=== PATIENT | male | born 1950 | race Caucasian/White ===

== ENCOUNTER 2024-10-17 18:49 | Inpatient (IN) | payer MEDICARE, OTHER ==
[~2024-10-17] VITALS: Ht 175.3 cm; Wt 74.5 kg
[2024-10-17 19:32] LABS: BASOPHILS % (AUTO) 0.3 % (0-1); EOSINOPHILS % (AUTO) 0.4 % (0-6); HEMATOCRIT 39.1 % (42.0-52.0); HEMOGLOBIN 13.2 g/dl (14.0-17.9); LYMPHOCYTES # (AUTO) 0.5 X10'3 (1.1-4.8); LYMPHOCYTES % (AUTO) 4.8 % (21-51); MEAN CORPUSCULAR HEMOGLOBIN 29.4 PG (27.0-31.0); MEAN CORPUSCULAR HGB CONC 33.6 g/dL (33.0-36.5); MEAN CORPUSCULAR VOLUME 87.5 FL (78-98); MEAN PLATELET VOLUME 6.9 FL (7.4-10.4); MONOCYTES # (AUTO) 0.7 X10'3 (0-0.9); MONOCYTES % (AUTO) 6.6 % (2-12); NEUTROPHILS # (AUTO) 9.2 X10'3 (1.8-7.7); NEUTROPHILS % (AUTO) 87.9 % (42-75); PLATELET COUNT 276 X10'3 (140-440); RED BLOOD COUNT 4.47 X10'6 (4.70-6.10); RED CELL DISTRIBUTION WIDTH 12.7 % (11.5-14.5); WHITE BLOOD COUNT 10.5 X10'3 (4.5-11.0)
[2024-10-17 19:55] LABS: ALBUMIN 3.1 G/DL (3.4-5.0); ANION GAP 9 (8-16); BLOOD UREA NITROGEN 18 MG/DL (7-18); BUN/CREATININE RATIO 18.4 (10.0-20.0); CALCIUM 9.2 MG/DL (8.5-10.1); CHLORIDE 106 MMOL/L (99-107); CREATININE 0.98 MG/DL (0.60-1.10); GLUCOSE 176 MG/DL (70-104); PRO BRAIN NATRIURETIC PEPTIDE 2747 PG/ML (0-450); SODIUM 141 MMOL/L (135-145); TOTAL CARBON DIOXIDE 25.7 MMOL/L (24-32); eCRCL 65 ML/MIN; eGFR 75 ML/MIN
[2024-10-17 20:10] LABS: POTASSIUM 4.3 MMOL/L (3.5-5.1)
[2024-10-17] MEDS ORDERED: magnesium sulf-water 4G/100mL 100 ML IV PRN (21:25)
[2024-10-17] MEDS ORDERED: albuterol 2.5 MG/3 ML nebule NEB PRN (21:25)
[2024-10-17] MEDS ORDERED: magnesium hydroxide 30ml (MOM) UD suspension PO PRN (21:25)
[2024-10-17] MEDS ORDERED: mag hydrox/Alum hydrox/simeth 30ml oral suspension PO PRN (21:25)
[2024-10-17] MEDS ORDERED: magnesium sulf-water 2g/50mL 50 ML IV PRN (21:25)
[2024-10-17] MEDS ORDERED: potassium Cl 20 mEq SR tablet PO PRN (21:25)
[2024-10-17] MEDS ORDERED: acetaminophen 325mg tablet PO PRN (21:25)
[2024-10-17] MEDS ORDERED: potassium Cl 40MEQ/1/2NS 520ml 520 ML IV PRN (21:25)
[2024-10-17 21:52] LABS: APTT 25 SECONDS (22-32); D-DIMER 1.32 MG/L FEU (0-0.50); PROTHROMBIN TIME 10.4 SECONDS (9.0-12.0)
[2024-10-17] MEDS: CefTRIAXone 2gm/D5W 50ml BAG 50 ML IV SCH (21:54)
[2024-10-17] MEDS: normal saline 1000ml 1,000 ML IV SCH (21:54)
[2024-10-17] MEDS: acetaminophen 325mg tablet PO PRN (22:04)
[2024-10-17] MEDS ORDERED: hyDROXYzine 50 mg/ml injection ***IM only IM ONE (22:25)
[2024-10-17] MEDS ORDERED: iohexol 350MG/ML 100ml bottle IV ONE (22:46)
[2024-10-17] MEDS: hydrOXYzine 25 MG tablet PO ONE (23:43)
[2024-10-18] VITALS (20 sets, daily range): BP systolic 133–191; BP diastolic 70–82; PULSE 66–111; RESP 17–26; TEMP 97.1–98.7; O2SAT 76–95
[2024-10-18] MEDS: azithromycin/NS 500mg/250ml 250 ML IV SCH
[2024-10-18] MEDS: labetalol 20mg/4ml (5mg/ml) syringe IV ONE ×2 (01:15→05:02)
[2024-10-18] MEDS ORDERED: rocuronium 10mg/ml inj IV ONE (05:00)
[2024-10-18 05:36] LABS: BASOPHILS % (AUTO) 0.1 % (0-1); EOSINOPHILS % (AUTO) 0.4 % (0-6); HEMATOCRIT 33.8 % (42.0-52.0); HEMOGLOBIN 11.6 g/dl (14.0-17.9); LYMPHOCYTES # (AUTO) 0.4 X10'3 (1.1-4.8); MEAN CORPUSCULAR HEMOGLOBIN 29.9 PG (27.0-31.0); MEAN CORPUSCULAR HGB CONC 34.4 g/dL (33.0-36.5); MEAN CORPUSCULAR VOLUME 86.8 FL (78-98); MEAN PLATELET VOLUME 6.8 FL (7.4-10.4); MONOCYTES # (AUTO) 0.8 X10'3 (0-0.9); MONOCYTES % (AUTO) 8.8 % (2-12); NEUTROPHILS # (AUTO) 7.4 X10'3 (1.8-7.7); NEUTROPHILS % (AUTO) 85.7 % (42-75); PLATELET COUNT 230 X10'3 (140-440); RED BLOOD COUNT 3.89 X10'6 (4.70-6.10); RED CELL DISTRIBUTION WIDTH 12.8 % (11.5-14.5); WHITE BLOOD COUNT 8.6 X10'3 (4.5-11.0)
[2024-10-18 05:52] LABS: APTT 26 SECONDS (22-32); PROTHROMBIN TIME 10.9 SECONDS (9.0-12.0)
[2024-10-18 06:11] LABS: ALANINE AMINOTRANSFERASE 23 U/L (12-78); ALBUMIN 2.7 G/DL (3.4-5.0); ALBUMIN/GLOBULIN RATIO 0.7 (1.1-1.5); ALKALINE PHOSPHATASE 70 IU/L (46-116); ANION GAP 9 (8-16); ASPARTATE AMINO TRANSFERASE 24 U/L (10-37); BILIRUBIN,TOTAL 0.8 MG/DL (0.1-1.0); BLOOD UREA NITROGEN 14 MG/DL (7-18); BUN/CREATININE RATIO 16.9 (10.0-20.0); CALCIUM 8.4 MG/DL (8.5-10.1); CHLORIDE 106 MMOL/L (99-107); CREATININE 0.83 MG/DL (0.60-1.10); GLUCOSE 128 MG/DL (70-104); MAGNESIUM 1.5 MG/DL (1.5-2.4); PHOSPHORUS 2.8 MG/DL (2.3-4.5); POTASSIUM 4.1 MMOL/L (3.5-5.1); SODIUM 141 MMOL/L (135-145); TOTAL CARBON DIOXIDE 25.7 MMOL/L (24-32); TOTAL PROTEIN 6.5 G/DL (6.4-8.2); eCRCL 77 ML/MIN; eGFR 90 ML/MIN
[2024-10-18] MEDS: docusate sod 100mg capsule PO SCH (08:00)
[2024-10-18] MEDS: K and/or MAG REPLACEMENT MC SCH (08:00)
[2024-10-18] MEDS: hydrALAZINE 20mg/ml inj. IV PRN (09:50)
[2024-10-18] MEDS ORDERED: EZET10TA48 PO (10:08)
[2024-10-18] MEDS ORDERED: METO-395 PO (10:13)
[2024-10-18] MEDS ORDERED: acetaminophen 325mg tablet PO PRN (11:20)
[2024-10-18] MEDS: ondansetron/PF 4mg/2ml inj IV PRN (12:40)
[2024-10-18] MEDS: ketorolac trometh 15mg/ml vial 15 MG/ML ML IV ONE (15:35)
[2024-10-18] MEDS: LORazepam 0.5 MG tablet PO PRN (15:35)
[2024-10-18] MEDS: ipratropium/albuterol 3ml nebule NEB PRN (15:56)
[2024-10-18] MEDS: ipratropium/albuterol 3ml nebule NEB SCH (19:47)
[2024-10-18] MEDS: budesonide 0.5mg/2ml UD nebule IH SCH (19:47)
[2024-10-18] MEDS: enoxaparin 40mg/0.4ml syringe SQ SCH (20:19)
[2024-10-18 21:38] LABS: ABG BASE EXCESS -1.2 mmol/L (-2.0-3.0); ABG HCO3 21.4 mmol/L (21.0-28.0); ABG OXYGEN SATURATION 96.5 % (94.0-98.0); ABG PCO2 (T) 29.2 mmHg (35.0-48.0); ABG PH (T) 7.483 (7.350-7.450); ABG PO2 (T) 81.3 mmHg (83.0-108.0); ALLEN'S TEST POSITIVE; FCOHb 0.6 % (0.5-1.5); FHHb 3.5 % (0.0-5.0); FLOW 50 L/min; FMetHb 0.3 % (0.0-1.5); FO2Hb 95.6 % (94.0-98.0); MODE HIGH FLOW; TOTAL HEMOGLOBIN 11.4 G/dl (13.5-17.5)
[2024-10-19] VITALS (30 sets, daily range): BP systolic 141–169; BP diastolic 69–86; PULSE 72–99; RESP 20–45; TEMP 96.2–99.2; O2SAT 86–100
[2024-10-19] MEDS: furosemide 40mg/4ml inj IV ONE ×2 (00:41→10:50)
[2024-10-19 01:12] LABS: ALANINE AMINOTRANSFERASE 22 U/L (12-78); ALBUMIN 2.5 G/DL (3.4-5.0); ALBUMIN/GLOBULIN RATIO 0.7 (1.1-1.5); ALKALINE PHOSPHATASE 76 IU/L (46-116); ANION GAP 12 (8-16); ASPARTATE AMINO TRANSFERASE 29 U/L (10-37); BILIRUBIN,TOTAL 0.6 MG/DL (0.1-1.0); BLOOD UREA NITROGEN 14 MG/DL (7-18); BUN/CREATININE RATIO 14.7 (10.0-20.0); CALCIUM 8.3 MG/DL (8.5-10.1); CHLORIDE 108 MMOL/L (99-107); CREATININE 0.95 MG/DL (0.60-1.10); GLUCOSE 123 MG/DL (70-104); MAGNESIUM 1.3 MG/DL (1.5-2.4); PHOSPHORUS 2.5 MG/DL (2.3-4.5); POTASSIUM 3.5 MMOL/L (3.5-5.1); PRO BRAIN NATRIURETIC PEPTIDE 8313 PG/ML (0-450); SODIUM 143 MMOL/L (135-145); TOTAL CARBON DIOXIDE 22.7 MMOL/L (24-32); TOTAL PROTEIN 6.3 G/DL (6.4-8.2); eCRCL 67 ML/MIN; eGFR 77 ML/MIN
[2024-10-19 06:45] LABS: BASOPHILS % (AUTO) 0 % (0-1); EOSINOPHILS % (AUTO) 0.1 % (0-6); HEMATOCRIT 31.8 % (42.0-52.0); HEMOGLOBIN 11.1 g/dl (14.0-17.9); LYMPHOCYTES # (AUTO) 0.3 X10'3 (1.1-4.8); LYMPHOCYTES % (AUTO) 2.8 % (21-51); MEAN CORPUSCULAR HEMOGLOBIN 30.1 PG (27.0-31.0); MEAN CORPUSCULAR HGB CONC 34.7 g/dL (33.0-36.5); MEAN CORPUSCULAR VOLUME 86.7 FL (78-98); MEAN PLATELET VOLUME 7.3 FL (7.4-10.4); NEUTROPHILS # (AUTO) 10.7 X10'3 (1.8-7.7); NEUTROPHILS % (AUTO) 89.1 % (42-75); PLATELET COUNT 223 X10'3 (140-440); RED BLOOD COUNT 3.67 X10'6 (4.70-6.10); RED CELL DISTRIBUTION WIDTH 12.7 % (11.5-14.5)
[2024-10-19 06:54] LABS: APTT 29 SECONDS (22-32); INR 1.1 INR; PROTHROMBIN TIME 11.1 SECONDS (9.0-12.0)
[2024-10-19] MEDS: ezetimibe 10mg tablet PO SCH (08:07)
[2024-10-19] MEDS: metoprolol succinate 25mg (24-HOUR) SR. Tablet PO SCH (08:08)
[2024-10-19] MEDS: magnesium Cl slow-release 64mg tablet PO PRN (17:30)
[2024-10-19] MEDS: methylPREDNISolone sod succ 125mg/2ml vial IV ONE (22:00)
[2024-10-19] MEDS: ketorolac trometh 15mg/ml vial 15 MG/ML ML IV PRN (22:00)
[2024-10-19] MEDS: furosemide 40mg/4ml inj IV SCH (22:03)
[2024-10-20] VITALS (23 sets, daily range): BP systolic 114–145; BP diastolic 63–83; PULSE 63–87; RESP 14–33; TEMP 96.1–98.8; O2SAT 90–99
[2024-10-20 06:41] LABS: BASOPHILS % (AUTO) 0.1 % (0-1); EOSINOPHILS % (AUTO) 0 % (0-6); HEMATOCRIT 34.2 % (42.0-52.0); HEMOGLOBIN 11.8 g/dl (14.0-17.9); LYMPHOCYTES # (AUTO) 0.2 X10'3 (1.1-4.8); LYMPHOCYTES % (AUTO) 1.6 % (21-51); MEAN CORPUSCULAR HGB CONC 34.5 g/dL (33.0-36.5); MEAN CORPUSCULAR VOLUME 86.9 FL (78-98); MEAN PLATELET VOLUME 7.4 FL (7.4-10.4); MONOCYTES # (AUTO) 0.3 X10'3 (0-0.9); MONOCYTES % (AUTO) 2.2 % (2-12); NEUTROPHILS # (AUTO) 12.8 X10'3 (1.8-7.7); NEUTROPHILS % (AUTO) 96.1 % (42-75); PLATELET COUNT 217 X10'3 (140-440); RED BLOOD COUNT 3.94 X10'6 (4.70-6.10); RED CELL DISTRIBUTION WIDTH 12.5 % (11.5-14.5); WHITE BLOOD COUNT 13.3 X10'3 (4.5-11.0)
[2024-10-20 06:42] LABS: APTT 31 SECONDS (22-32); INR 1.2 INR; PROTHROMBIN TIME 12.3 SECONDS (9.0-12.0)
[2024-10-20 07:07] LABS: ALANINE AMINOTRANSFERASE 49 U/L (12-78); ALBUMIN 2.3 G/DL (3.4-5.0); ALBUMIN/GLOBULIN RATIO 0.5 (1.1-1.5); ALKALINE PHOSPHATASE 92 IU/L (46-116); ANION GAP 10 (8-16); ASPARTATE AMINO TRANSFERASE 61 U/L (10-37); BILIRUBIN,TOTAL 0.7 MG/DL (0.1-1.0); BLOOD UREA NITROGEN 23 MG/DL (7-18); BUN/CREATININE RATIO 21.3 (10.0-20.0); CALCIUM 8.7 MG/DL (8.5-10.1); CHLORIDE 102 MMOL/L (99-107); CREATININE 1.08 MG/DL (0.60-1.10); GLUCOSE 159 MG/DL (70-104); MAGNESIUM 1.6 MG/DL (1.5-2.4); POTASSIUM 3.4 MMOL/L (3.5-5.1); SODIUM 140 MMOL/L (135-145); TOTAL CARBON DIOXIDE 28.1 MMOL/L (24-32); eCRCL 59 ML/MIN; eGFR 67 ML/MIN
[2024-10-20] MEDS: potassium Cl 20 mEq SR tablet PO PRN (07:44)
[2024-10-20] MEDS: methylPREDNISolone sod succ 125mg/2ml vial IV SCH ×2 (07:47→20:37)
[2024-10-20] MEDS: metoprolol tartrate 12.5mg (1/2 tablet) PO SCH (08:00)
[2024-10-20 13:43] LABS: ABG BASE EXCESS 2.7 mmol/L (-2.0-3.0); ABG HCO3 23.3 mmol/L (21.0-28.0); ABG OXYGEN SATURATION 95.7 % (94.0-98.0); ABG PCO2 (T) 25.1 mmHg (35.0-48.0); ABG PH (T) 7.585 (7.350-7.450); ABG PO2 (T) 70.5 mmHg (83.0-108.0); ALLEN'S TEST POSITIVE; FCOHb 0.4 % (0.5-1.5); FHHb 4.3 % (0.0-5.0); FLOW 45 L/min; FMetHb 0.3 % (0.0-1.5); MODE HIGH FLOW; TOTAL HEMOGLOBIN 12.7 G/dl (13.5-17.5)
[2024-10-20] MEDS: acetaZOLAMIDE IV 500mg inj IV SCH (15:45)
[2024-10-20] MEDS: azithromycin 250mg tablet PO SCH (20:37)
[2024-10-20] MEDS ORDERED: iohexol 300mg/ml 100ml inj. ONE (22:34)
[2024-10-20] MEDS ORDERED: baclofen 10mg tablet PO PRN (23:00)
[2024-10-21] VITALS (24 sets, daily range): BP systolic 99–142; BP diastolic 54–86; PULSE 40–138; RESP 20–36; TEMP 97.3–98.7; O2SAT 87–98
[2024-10-21] MEDS: potassium Cl 20 mEq SR tablet PO PRN ×2 (03:48→15:22)
[2024-10-21 06:35] LABS: INR 1.1 INR; PROTHROMBIN TIME 11.4 SECONDS (9.0-12.0)
[2024-10-21 06:40] LABS: ALANINE AMINOTRANSFERASE 317 U/L (12-78); ALBUMIN 2.4 G/DL (3.4-5.0); ALBUMIN/GLOBULIN RATIO 0.5 (1.1-1.5); ALKALINE PHOSPHATASE 105 IU/L (46-116); ANION GAP 10 (8-16); ASPARTATE AMINO TRANSFERASE 331 U/L (10-37); BILIRUBIN,TOTAL 0.5 MG/DL (0.1-1.0); BLOOD UREA NITROGEN 46 MG/DL (7-18); BUN/CREATININE RATIO 35.9 (10.0-20.0); CALCIUM 9.1 MG/DL (8.5-10.1); CHLORIDE 101 MMOL/L (99-107); CREATININE 1.28 MG/DL (0.60-1.10); GLUCOSE 160 MG/DL (70-104); MAGNESIUM 2.1 MG/DL (1.5-2.4); PHOSPHORUS 3.7 MG/DL (2.3-4.5); POTASSIUM 3.5 MMOL/L (3.5-5.1); SODIUM 140 MMOL/L (135-145); TOTAL CARBON DIOXIDE 29.4 MMOL/L (24-32); eCRCL 50 ML/MIN; eGFR 55 ML/MIN
[2024-10-21 06:41] LABS: BASOPHILS % (AUTO) 0.1 % (0-1); EOSINOPHILS % (AUTO) 0 % (0-6); HEMATOCRIT 34.9 % (42.0-52.0); HEMOGLOBIN 11.8 g/dl (14.0-17.9); LYMPHOCYTES # (AUTO) 0.3 X10'3 (1.1-4.8); LYMPHOCYTES % (AUTO) 1.3 % (21-51); MEAN CORPUSCULAR HEMOGLOBIN 29.3 PG (27.0-31.0); MEAN CORPUSCULAR HGB CONC 33.8 g/dL (33.0-36.5); MEAN CORPUSCULAR VOLUME 86.7 FL (78-98); MEAN PLATELET VOLUME 7.9 FL (7.4-10.4); MONOCYTES # (AUTO) 0.6 X10'3 (0-0.9); MONOCYTES % (AUTO) 2.7 % (2-12); NEUTROPHILS # (AUTO) 21.1 X10'3 (1.8-7.7); NEUTROPHILS % (AUTO) 95.9 % (42-75); PLATELET COUNT 288 X10'3 (140-440); RED BLOOD COUNT 4.02 X10'6 (4.70-6.10); RED CELL DISTRIBUTION WIDTH 12.6 % (11.5-14.5)
[2024-10-21 14:31] LABS: BASOPHILS # (AUTO) 0.1 X10'3 (0-0.2); BASOPHILS % (AUTO) 0.3 % (0-1); EOSINOPHILS % (AUTO) 0 % (0-6); HEMOGLOBIN 12.5 g/dl (14.0-17.9); LYMPHOCYTES # (AUTO) 0.2 X10'3 (1.1-4.8); LYMPHOCYTES % (AUTO) 0.8 % (21-51); MEAN CORPUSCULAR HEMOGLOBIN 29.5 PG (27.0-31.0); MEAN CORPUSCULAR HGB CONC 33.8 g/dL (33.0-36.5); MEAN CORPUSCULAR VOLUME 87.1 FL (78-98); MEAN PLATELET VOLUME 7.6 FL (7.4-10.4); MONOCYTES # (AUTO) 0.7 X10'3 (0-0.9); MONOCYTES % (AUTO) 2.9 % (2-12); PLATELET COUNT 300 X10'3 (140-440); RED BLOOD COUNT 4.24 X10'6 (4.70-6.10)
[2024-10-21 14:47] LABS: ALANINE AMINOTRANSFERASE 409 U/L (12-78); ALBUMIN 2.2 G/DL (3.4-5.0); ALBUMIN/GLOBULIN RATIO 0.5 (1.1-1.5); ALKALINE PHOSPHATASE 109 IU/L (46-116); ANION GAP 11 (8-16); ASPARTATE AMINO TRANSFERASE 352 U/L (10-37); BILIRUBIN,TOTAL 0.5 MG/DL (0.1-1.0); BLOOD UREA NITROGEN 52 MG/DL (7-18); BUN/CREATININE RATIO 33.3 (10.0-20.0); CALCIUM 8.6 MG/DL (8.5-10.1); CHLORIDE 100 MMOL/L (99-107); CREATININE 1.56 MG/DL (0.60-1.10); GLUCOSE 298 MG/DL (70-104); SODIUM 137 MMOL/L (135-145); TOTAL CARBON DIOXIDE 25.7 MMOL/L (24-32); TOTAL PROTEIN 6.8 G/DL (6.4-8.2); eCRCL 41 ML/MIN; eGFR 44 ML/MIN
[2024-10-21] MEDS: BARICITINIB 2 MG TABLET PO ONE (15:23)
[2024-10-21] MEDS: NORMAL SALINE IV STA (16:26)
[2024-10-21] MEDS: TOCILIZUMAB IV STA (16:26)
[2024-10-21] MEDS: lactose-reduced food (Ensure Enlive) - 237ml bottle PO SCH (18:22)
[2024-10-21] MEDS: metoprolol tartrate 1mg/ml inj IV ONE (20:31)
[2024-10-22] VITALS (26 sets, daily range): BP systolic 107–136; BP diastolic 57–87; PULSE 80–114; RESP 16–28; TEMP 97–98.2; O2SAT 87–98
[2024-10-22 05:23] LABS: BASOPHILS % (AUTO) 0.1 % (0-1); EOSINOPHILS % (AUTO) 0 % (0-6); HEMATOCRIT 34.7 % (42.0-52.0); HEMOGLOBIN 11.5 g/dl (14.0-17.9); LYMPHOCYTES # (AUTO) 0.3 X10'3 (1.1-4.8); LYMPHOCYTES % (AUTO) 2.2 % (21-51); MEAN CORPUSCULAR HEMOGLOBIN 29.1 PG (27.0-31.0); MEAN CORPUSCULAR HGB CONC 33.3 g/dL (33.0-36.5); MEAN CORPUSCULAR VOLUME 87.5 FL (78-98); MEAN PLATELET VOLUME 7.6 FL (7.4-10.4); MONOCYTES # (AUTO) 0.4 X10'3 (0-0.9); MONOCYTES % (AUTO) 2.8 % (2-12); NEUTROPHILS # (AUTO) 13.6 X10'3 (1.8-7.7); NEUTROPHILS % (AUTO) 94.9 % (42-75); PLATELET COUNT 280 X10'3 (140-440); RED BLOOD COUNT 3.97 X10'6 (4.70-6.10); RED CELL DISTRIBUTION WIDTH 12.6 % (11.5-14.5); WHITE BLOOD COUNT 14.3 X10'3 (4.5-11.0)
[2024-10-22 05:45] LABS: INR 1.1 INR; PROTHROMBIN TIME 11.7 SECONDS (9.0-12.0)
[2024-10-22 05:52] LABS: ALANINE AMINOTRANSFERASE 516 U/L (12-78); ALBUMIN 2.2 G/DL (3.4-5.0); ALBUMIN/GLOBULIN RATIO 0.5 (1.1-1.5); ALKALINE PHOSPHATASE 107 IU/L (46-116); ANION GAP 9 (8-16); ASPARTATE AMINO TRANSFERASE 313 U/L (10-37); BILIRUBIN,TOTAL 0.4 MG/DL (0.1-1.0); BLOOD UREA NITROGEN 57 MG/DL (7-18); BUN/CREATININE RATIO 42.5 (10.0-20.0); CALCIUM 8.7 MG/DL (8.5-10.1); CHLORIDE 104 MMOL/L (99-107); CREATININE 1.34 MG/DL (0.60-1.10); GLUCOSE 170 MG/DL (70-104); MAGNESIUM 2.3 MG/DL (1.5-2.4); PHOSPHORUS 4.1 MG/DL (2.3-4.5); POTASSIUM 4.5 MMOL/L (3.5-5.1); SODIUM 141 MMOL/L (135-145); TOTAL CARBON DIOXIDE 27.7 MMOL/L (24-32); TOTAL PROTEIN 6.6 G/DL (6.4-8.2); eCRCL 48 ML/MIN; eGFR 52 ML/MIN
[2024-10-22] MEDS: BARICITINIB 2 MG TABLET PO SCH (09:40)
[2024-10-23] VITALS (27 sets, daily range): BP systolic 98–142; BP diastolic 62–92; PULSE 78–107; RESP 18–34; TEMP 96.7–97.7; O2SAT 83–100
[2024-10-23 11:50] LABS: ABG BASE EXCESS -0.7 mmol/L (-2.0-3.0); ABG HCO3 22.5 mmol/L (21.0-28.0); ABG OXYGEN SATURATION 94.7 % (94.0-98.0); ABG PH (T) 7.464 (7.350-7.450); ABG PO2 (T) 71.7 mmHg (83.0-108.0); ALLEN'S TEST POSITIVE; FCOHb 0.3 % (0.5-1.5); FHHb 5.3 % (0.0-5.0); FLOW 60 L/min; FMetHb 0.3 % (0.0-1.5); FO2Hb 94.1 % (94.0-98.0); MODE HIGH FLOW; PATIENT TEMPERATURE 36.5; TOTAL HEMOGLOBIN 12.9 G/dl (13.5-17.5)
[2024-10-23 12:50] LABS: BASOPHILS % (AUTO) 0 % (0-1); EOSINOPHILS % (AUTO) 0 % (0-6); HEMATOCRIT 36.8 % (42.0-52.0); HEMOGLOBIN 12.3 g/dl (14.0-17.9); LYMPHOCYTES # (AUTO) 0.3 X10'3 (1.1-4.8); LYMPHOCYTES % (AUTO) 1.9 % (21-51); MEAN CORPUSCULAR HEMOGLOBIN 29.2 PG (27.0-31.0); MEAN CORPUSCULAR HGB CONC 33.3 g/dL (33.0-36.5); MEAN CORPUSCULAR VOLUME 87.7 FL (78-98); MEAN PLATELET VOLUME 7.8 FL (7.4-10.4); MONOCYTES # (AUTO) 0.7 X10'3 (0-0.9); MONOCYTES % (AUTO) 4.7 % (2-12); NEUTROPHILS # (AUTO) 14.7 X10'3 (1.8-7.7); NEUTROPHILS % (AUTO) 93.4 % (42-75); PLATELET COUNT 336 X10'3 (140-440); RED CELL DISTRIBUTION WIDTH 12.8 % (11.5-14.5); WHITE BLOOD COUNT 15.7 X10'3 (4.5-11.0)
[2024-10-23 13:22] LABS: ALANINE AMINOTRANSFERASE 496 U/L (12-78); ALBUMIN 2.4 G/DL (3.4-5.0); ALBUMIN/GLOBULIN RATIO 0.6 (1.1-1.5); ALKALINE PHOSPHATASE 103 IU/L (46-116); ANION GAP 9 (8-16); ASPARTATE AMINO TRANSFERASE 101 U/L (10-37); BILIRUBIN,TOTAL 0.4 MG/DL (0.1-1.0); BLOOD UREA NITROGEN 52 MG/DL (7-18); BUN/CREATININE RATIO 40.3 (10.0-20.0); CALCIUM 8.7 MG/DL (8.5-10.1); CHLORIDE 103 MMOL/L (99-107); CREATININE 1.29 MG/DL (0.60-1.10); GLUCOSE 180 MG/DL (70-104); POTASSIUM 3.8 MMOL/L (3.5-5.1); SODIUM 140 MMOL/L (135-145); TOTAL CARBON DIOXIDE 28.4 MMOL/L (24-32); TOTAL PROTEIN 6.6 G/DL (6.4-8.2); eCRCL 49 ML/MIN; eGFR 54 ML/MIN
[2024-10-23] MEDS: furosemide 40mg/4ml inj IV SCH (20:55)
[2024-10-24] VITALS (24 sets, daily range): BP systolic 128–147; BP diastolic 69–94; PULSE 82–99; RESP 16–33; TEMP 96.6–98.4; O2SAT 88–98
[2024-10-24 11:05] LABS: BASOPHILS % (AUTO) 0.1 % (0-1); EOSINOPHILS % (AUTO) 0 % (0-6); HEMATOCRIT 39.7 % (42.0-52.0); HEMOGLOBIN 13.1 g/dl (14.0-17.9); LYMPHOCYTES # (AUTO) 0.4 X10'3 (1.1-4.8); LYMPHOCYTES % (AUTO) 1.9 % (21-51); MEAN CORPUSCULAR HEMOGLOBIN 28.7 PG (27.0-31.0); MEAN CORPUSCULAR VOLUME 86.9 FL (78-98); MEAN PLATELET VOLUME 7.5 FL (7.4-10.4); MONOCYTES % (AUTO) 4.7 % (2-12); NEUTROPHILS % (AUTO) 93.3 % (42-75); PLATELET COUNT 420 X10'3 (140-440); RED BLOOD COUNT 4.56 X10'6 (4.70-6.10); WHITE BLOOD COUNT 21.5 X10'3 (4.5-11.0)
[2024-10-24 11:13] LABS: ALBUMIN 2.5 G/DL (3.4-5.0); ANION GAP 9 (8-16); BLOOD UREA NITROGEN 53 MG/DL (7-18); BUN/CREATININE RATIO 44.5 (10.0-20.0); CALCIUM 8.9 MG/DL (8.5-10.1); CHLORIDE 102 MMOL/L (99-107); CREATININE 1.19 MG/DL (0.60-1.10); GLUCOSE 170 MG/DL (70-104); POTASSIUM 4.2 MMOL/L (3.5-5.1); SODIUM 138 MMOL/L (135-145); eCRCL 54 ML/MIN; eGFR 60 ML/MIN
[2024-10-25] VITALS (27 sets, daily range): BP systolic 110–136; BP diastolic 65–88; PULSE 76–110; RESP 12–30; TEMP 96.8–97.7; O2SAT 87–95
[2024-10-25] MEDS: methylPREDNISolone sod succ 125mg/2ml vial IV SCH (09:51)
[2024-10-26] VITALS (29 sets, daily range): BP systolic 84–150; BP diastolic 51–99; PULSE 72–113; RESP 14–45; TEMP 97–97.6; O2SAT 75–100
[2024-10-26] MEDS ORDERED: LORazepam 0.5 MG tablet PO PRN (08:55)
[2024-10-26] MEDS: LORazepam 2 mg/ml vial ONE ×4 (09:04→12:34)
[2024-10-26 09:20] LABS: BASOPHILS % (AUTO) 0.1 % (0-1); EOSINOPHILS # (AUTO) 0.2 X10'3 (0-0.9); HEMATOCRIT 43.6 % (42.0-52.0); HEMOGLOBIN 14.5 g/dl (14.0-17.9); LYMPHOCYTES # (AUTO) 0.6 X10'3 (1.1-4.8); LYMPHOCYTES % (AUTO) 2.8 % (21-51); MEAN CORPUSCULAR HEMOGLOBIN 28.8 PG (27.0-31.0); MEAN CORPUSCULAR HGB CONC 33.2 g/dL (33.0-36.5); MEAN CORPUSCULAR VOLUME 86.7 FL (78-98); MEAN PLATELET VOLUME 7.7 FL (7.4-10.4); MONOCYTES # (AUTO) 0.8 X10'3 (0-0.9); MONOCYTES % (AUTO) 3.8 % (2-12); NEUTROPHILS # (AUTO) 19.5 X10'3 (1.8-7.7); NEUTROPHILS % (AUTO) 92.3 % (42-75); PLATELET COUNT 501 X10'3 (140-440); RED BLOOD COUNT 5.03 X10'6 (4.70-6.10); RED CELL DISTRIBUTION WIDTH 12.7 % (11.5-14.5); WHITE BLOOD COUNT 21.2 X10'3 (4.5-11.0)
[2024-10-26 09:42] LABS: ALANINE AMINOTRANSFERASE 187 U/L (12-78); ALBUMIN 2.7 G/DL (3.4-5.0); ALBUMIN/GLOBULIN RATIO 0.7 (1.1-1.5); ALKALINE PHOSPHATASE 85 IU/L (46-116); ANION GAP 11 (8-16); ASPARTATE AMINO TRANSFERASE 16 U/L (10-37); BILIRUBIN,TOTAL 0.7 MG/DL (0.1-1.0); BLOOD UREA NITROGEN 59 MG/DL (7-18); BUN/CREATININE RATIO 51.8 (10.0-20.0); CALCIUM 8.7 MG/DL (8.5-10.1); CHLORIDE 101 MMOL/L (99-107); CREATININE 1.14 MG/DL (0.60-1.10); GLUCOSE 138 MG/DL (70-104); POTASSIUM 4.5 MMOL/L (3.5-5.1); SODIUM 139 MMOL/L (135-145); TOTAL CARBON DIOXIDE 27.3 MMOL/L (24-32); TOTAL PROTEIN 6.8 G/DL (6.4-8.2); eCRCL 56 ML/MIN; eGFR 63 ML/MIN
[2024-10-26] MEDS: LORazepam 2 mg/ml vial IV ONE (11:42)
[2024-10-26 11:48] LABS: ABG BASE EXCESS -1.9 mmol/L (-2.0-3.0); ABG HCO3 20.3 mmol/L (21.0-28.0); ABG OXYGEN SATURATION 78.3 % (94.0-98.0); ABG PCO2 (T) 28.5 mmHg (35.0-48.0); ABG PO2 (T) 41.8 mmHg (83.0-108.0); ALLEN'S TEST POSITIVE; FHHb 21.4 % (0.0-5.0); FMetHb 0.3 % (0.0-1.5); FO2Hb 77.3 % (94.0-98.0); MODE MASK - CPAP; TIDAL VOLUME 1101 mL; TOTAL HEMOGLOBIN 15.8 G/dl (13.5-17.5)
[2024-10-26] MEDS: azithromycin/NS 500mg/250ml 250 ML IV SCH (12:26)
[2024-10-26] MEDS: FENTANYL-0.9 % NACL/PF 100 ML IV SCH (12:30)
[2024-10-26] MEDS: propofol 1000mg/100ml bottle 100 ML IV SCH (12:30)
[2024-10-26] MEDS: NORepinephrine 8mg/ 250ml NS 250 ML IV ONE (14:02)
[2024-10-26] MEDS: NORepinephrine 8mg/ 250ml NS 250 ML IV SCH (14:05)
[2024-10-26 14:43] LABS: ABG BASE EXCESS -2.9 mmol/L (-2.0-3.0); ABG HCO3 22.2 mmol/L (21.0-28.0); ABG PCO2 (T) 39.5 mmHg (35.0-48.0); ABG PH (T) 7.366 (7.350-7.450); ABG PO2 (T) 114.1 mmHg (83.0-108.0); ALLEN'S TEST POSITIVE; MODE VENT - AC; PATIENT TEMPERATURE 36.7; PEEP 5 cm H2O; RESPIRATORY RATE 18 b/min; TIDAL VOLUME 400 mL
[2024-10-26 15:46] LABS: BILIRUBIN,URINE NEGATIVE (Neg); CLARITY,URINE CLEAR (Clear); GLUCOSE, URINE NEGATIVE (Neg); KETONES,URINE NEGATIVE (Neg); LEUKOCYTE ESTERASE ,URINE NEGATIVE (Neg); NITRITES, URINE NEGATIVE (Neg); OCCULT BLOOD,URINE NEGATIVE (Neg); PH,URINE 5.5 (4.8-8.0); PROTEIN,URINE NEGATIVE (Neg); UROBILINOGEN,URINE 0.2 E.U/dL (0.2-1.0)
[2024-10-26 15:48] LABS: COLOR,URINE YELLOW (Yellow); UA COLLECTION TYPE FOLEY CATH
[2024-10-26] MEDS ORDERED: UNABLE TO OBTAIN (16:11)
[2024-10-26] MEDS: ringers solution, lacted 1,000 ML IV SCH (16:40)
[2024-10-26] MEDS: ringers solution, lacted 1,000 ML IV ONE (17:15)
[2024-10-27] VITALS (78 sets, daily range): BP systolic 67–119; BP diastolic 39–74; PULSE 91–141; RESP 13–34; O2SAT 91–100
[2024-10-27 02:13] LABS: BASOPHILS % (AUTO) 0.1 % (0-1); EOSINOPHILS # (AUTO) 0.9 X10'3 (0-0.9); EOSINOPHILS % (AUTO) 4.3 % (0-6); HEMATOCRIT 39.8 % (42.0-52.0); HEMOGLOBIN 13.4 g/dl (14.0-17.9); LYMPHOCYTES # (AUTO) 0.9 X10'3 (1.1-4.8); LYMPHOCYTES % (AUTO) 4.2 % (21-51); MEAN CORPUSCULAR HEMOGLOBIN 29.6 PG (27.0-31.0); MEAN CORPUSCULAR HGB CONC 33.7 g/dL (33.0-36.5); MEAN CORPUSCULAR VOLUME 87.8 FL (78-98); MONOCYTES % (AUTO) 5.1 % (2-12); NEUTROPHILS # (AUTO) 17.5 X10'3 (1.8-7.7); NEUTROPHILS % (AUTO) 86.3 % (42-75); PLATELET COUNT 433 X10'3 (140-440); RED BLOOD COUNT 4.53 X10'6 (4.70-6.10); RED CELL DISTRIBUTION WIDTH 12.7 % (11.5-14.5); WHITE BLOOD COUNT 20.3 X10'3 (4.5-11.0)
[2024-10-27 02:32] LABS: ALANINE AMINOTRANSFERASE 134 U/L (12-78); ALBUMIN 2.5 G/DL (3.4-5.0); ALBUMIN/GLOBULIN RATIO 0.7 (1.1-1.5); ALKALINE PHOSPHATASE 74 IU/L (46-116); ANION GAP 7 (8-16); ASPARTATE AMINO TRANSFERASE 15 U/L (10-37); BILIRUBIN,TOTAL 0.3 MG/DL (0.1-1.0); BLOOD UREA NITROGEN 67 MG/DL (7-18); BUN/CREATININE RATIO 48.2 (10.0-20.0); CHLORIDE 105 MMOL/L (99-107); CREATININE 1.39 MG/DL (0.60-1.10); GLUCOSE 118 MG/DL (70-104); POTASSIUM 4.7 MMOL/L (3.5-5.1); SODIUM 140 MMOL/L (135-145); TOTAL CARBON DIOXIDE 28.5 MMOL/L (24-32); TRIGLYCERIDES 264 MG/DL (20-135); eCRCL 46 ML/MIN; eGFR 50 ML/MIN
[2024-10-27 03:33] LABS: ABG BASE EXCESS -6.5 mmol/L (-2.0-3.0); ABG HCO3 21.7 mmol/L (21.0-28.0); ABG OXYGEN SATURATION 98.4 % (94.0-98.0); ABG PCO2 (T) 52.7 mmHg (35.0-48.0); ABG PH (T) 7.229 (7.350-7.450); ABG PO2 (T) 124.1 mmHg (83.0-108.0); ALLEN'S TEST Modified; FCOHb 0.8 % (0.5-1.5); FHHb 1.6 % (0.0-5.0); FMetHb 0.3 % (0.0-1.5); FO2Hb 97.3 % (94.0-98.0); MODE CMV PRVC IT 0.9; PATIENT TEMPERATURE 36.3; PEEP 7 cm H2O; RESPIRATORY RATE 18 b/min; TIDAL VOLUME 400 mL; TOTAL HEMOGLOBIN 13.9 G/dl (13.5-17.5)
[2024-10-27] MEDS: pantoprazole 40 MG vial IV SCH (13:00)
[2024-10-27] MEDS ORDERED: acetaminophen 325mg/10.15ml oral unit dose solution OGT PRN ×2 (13:36→13:37)
[2024-10-27] MEDS ORDERED: magnesium hydroxide 30ml (MOM) UD suspension OGT PRN (13:42)
[2024-10-27] MEDS ORDERED: LORazepam 0.5 MG tablet OGT PRN (13:42)
[2024-10-27] MEDS ORDERED: mag hydrox/Alum hydrox/simeth 30ml oral suspension OGT PRN (13:42)
[2024-10-27] MEDS: digoxin 250mcg/ml 2ml ampule IV ONE (14:28)
[2024-10-27] MEDS: mineral oil/petrolatum ophthal oint EACHEYE SCH (14:38)
[2024-10-27 16:04] LABS: ABG BASE EXCESS -7.5 mmol/L (-2.0-3.0); ABG HCO3 20.9 mmol/L (21.0-28.0); ABG OXYGEN SATURATION 97.2 % (94.0-98.0); ABG PCO2 (T) 53.9 mmHg (35.0-48.0); ABG PH (T) 7.205 (7.350-7.450); ABG PO2 (T) 99.7 mmHg (83.0-108.0); ALLEN'S TEST POSITIVE; FCOHb 0.8 % (0.5-1.5); FHHb 2.8 % (0.0-5.0); FO2Hb 96.4 % (94.0-98.0); MODE VENT - AC; PATIENT TEMPERATURE 36.8; PEEP 7 cm H2O; RESPIRATORY RATE 18 b/min; TIDAL VOLUME 450 mL; TOTAL HEMOGLOBIN 13.8 G/dl (13.5-17.5)
[2024-10-28] VITALS (47 sets, daily range): BP systolic 87–131; BP diastolic 42–72; PULSE 72–100; RESP 20–26; O2SAT 86–96
[2024-10-28 01:29] LABS: BASOPHILS % (AUTO) 0.1 % (0-1); EOSINOPHILS # (AUTO) 0.1 X10'3 (0-0.9); EOSINOPHILS % (AUTO) 0.3 % (0-6); HEMATOCRIT 36.7 % (42.0-52.0); HEMOGLOBIN 12.1 g/dl (14.0-17.9); LYMPHOCYTES # (AUTO) 0.4 X10'3 (1.1-4.8); LYMPHOCYTES % (AUTO) 2.4 % (21-51); MEAN CORPUSCULAR HGB CONC 32.9 g/dL (33.0-36.5); MEAN CORPUSCULAR VOLUME 88.1 FL (78-98); MEAN PLATELET VOLUME 7.7 FL (7.4-10.4); MONOCYTES # (AUTO) 0.6 X10'3 (0-0.9); MONOCYTES % (AUTO) 3.4 % (2-12); NEUTROPHILS # (AUTO) 15.4 X10'3 (1.8-7.7); NEUTROPHILS % (AUTO) 93.8 % (42-75); PLATELET COUNT 375 X10'3 (140-440); RED BLOOD COUNT 4.17 X10'6 (4.70-6.10); RED CELL DISTRIBUTION WIDTH 12.9 % (11.5-14.5); WHITE BLOOD COUNT 16.4 X10'3 (4.5-11.0)
[2024-10-28 01:43] LABS: ALANINE AMINOTRANSFERASE 94 U/L (12-78); ALBUMIN 2.2 G/DL (3.4-5.0); ALBUMIN/GLOBULIN RATIO 0.7 (1.1-1.5); ALKALINE PHOSPHATASE 66 IU/L (46-116); ANION GAP 7 (8-16); ASPARTATE AMINO TRANSFERASE 18 U/L (10-37); BILIRUBIN,TOTAL 0.4 MG/DL (0.1-1.0); BLOOD UREA NITROGEN 55 MG/DL (7-18); BUN/CREATININE RATIO 49.5 (10.0-20.0); CALCIUM 8.1 MG/DL (8.5-10.1); CHLORIDE 107 MMOL/L (99-107); CREATININE 1.11 MG/DL (0.60-1.10); GLUCOSE 130 MG/DL (70-104); POTASSIUM 4.9 MMOL/L (3.5-5.1); SODIUM 142 MMOL/L (135-145); TOTAL CARBON DIOXIDE 28.1 MMOL/L (24-32); TOTAL PROTEIN 5.2 G/DL (6.4-8.2); eCRCL 58 ML/MIN; eGFR 65 ML/MIN
[2024-10-28] MEDS: digoxin 250mcg/ml 2ml ampule ONE (02:09)
[2024-10-28] MEDS: digoxin 250mcg/ml 2ml ampule IV ONE (02:41)
[2024-10-28 03:15] LABS: ABG HCO3 25.2 mmol/L (21.0-28.0); ABG OXYGEN SATURATION 97.7 % (94.0-98.0); ABG PCO2 (T) 47.6 mmHg (35.0-48.0); ABG PO2 (T) 96.9 mmHg (83.0-108.0); ALLEN'S TEST Modified; FCOHb 0.4 % (0.5-1.5); FHHb 2.3 % (0.0-5.0); FMetHb 0.3 % (0.0-1.5); MODE CMV PRVC; PATIENT TEMPERATURE 36.6; PEEP 7 cm H2O; RESPIRATORY RATE 22 b/min; TIDAL VOLUME 450 mL; TOTAL HEMOGLOBIN 11.9 G/dl (13.5-17.5)
[2024-10-28] MEDS: metoprolol tartrate 12.5mg (1/2 tablet) OGT SCH (08:00)
[2024-10-28] MEDS: furosemide 10 MG/1 ML 10ml inj IV ONE (11:56)
[2024-10-28] MEDS: lactulose 20gm/30ml cup PO SCH (14:06)
[2024-10-28] MEDS ORDERED: ATOR40TA PO (16:50)
[2024-10-29] VITALS (66 sets, daily range): BP systolic 87–130; BP diastolic 40–72; PULSE 63–84; RESP 20–27; O2SAT 9–98
[2024-10-29 03:02] LABS: BASOPHILS % (AUTO) 0.1 % (0-1); EOSINOPHILS # (AUTO) 0.1 X10'3 (0-0.9); EOSINOPHILS % (AUTO) 0.6 % (0-6); HEMATOCRIT 33.3 % (42.0-52.0); HEMOGLOBIN 11.1 g/dl (14.0-17.9); LYMPHOCYTES # (AUTO) 0.4 X10'3 (1.1-4.8); LYMPHOCYTES % (AUTO) 2.8 % (21-51); MEAN CORPUSCULAR HEMOGLOBIN 28.9 PG (27.0-31.0); MEAN CORPUSCULAR HGB CONC 33.2 g/dL (33.0-36.5); MEAN PLATELET VOLUME 7.7 FL (7.4-10.4); MONOCYTES # (AUTO) 0.6 X10'3 (0-0.9); MONOCYTES % (AUTO) 4.8 % (2-12); NEUTROPHILS # (AUTO) 12.3 X10'3 (1.8-7.7); NEUTROPHILS % (AUTO) 91.7 % (42-75); PLATELET COUNT 352 X10'3 (140-440); RED BLOOD COUNT 3.82 X10'6 (4.70-6.10); RED CELL DISTRIBUTION WIDTH 12.6 % (11.5-14.5); WHITE BLOOD COUNT 13.4 X10'3 (4.5-11.0)
[2024-10-29 03:11] LABS: ALANINE AMINOTRANSFERASE 68 U/L (12-78); ALBUMIN 2.1 G/DL (3.4-5.0); ALBUMIN/GLOBULIN RATIO 0.7 (1.1-1.5); ALKALINE PHOSPHATASE 57 IU/L (46-116); ANION GAP 2 (8-16); ASPARTATE AMINO TRANSFERASE 24 U/L (10-37); BILIRUBIN,TOTAL 0.3 MG/DL (0.1-1.0); BLOOD UREA NITROGEN 48 MG/DL (7-18); BUN/CREATININE RATIO 52.2 (10.0-20.0); CHLORIDE 109 MMOL/L (99-107); CREATININE 0.92 MG/DL (0.60-1.10); GLUCOSE 133 MG/DL (70-104); POTASSIUM 4.1 MMOL/L (3.5-5.1); PREALBUMIN 41.2 MG/DL (19-36); SODIUM 142 MMOL/L (135-145); TOTAL CARBON DIOXIDE 30.6 MMOL/L (24-32); eCRCL 69 ML/MIN; eGFR 80 ML/MIN
[2024-10-29 03:40] LABS: ABG BASE EXCESS -1.4 mmol/L (-2.0-3.0); ABG HCO3 24.4 mmol/L (21.0-28.0); ABG OXYGEN SATURATION 85.9 % (94.0-98.0); ABG PCO2 (T) 44.3 mmHg (35.0-48.0); ABG PH (T) 7.357 (7.350-7.450); ABG PO2 (T) 49.9 mmHg (83.0-108.0); ALLEN'S TEST Modified; FCOHb 0.7 % (0.5-1.5); FMetHb 0.3 % (0.0-1.5); MODE CMV PRVC; PATIENT TEMPERATURE 36.4; PEEP 7 cm H2O; RESPIRATORY RATE 22 b/min; TIDAL VOLUME 450 mL; TOTAL HEMOGLOBIN 11.7 G/dl (13.5-17.5)
[2024-10-29] MEDS: furosemide 10 MG/1 ML 10ml inj IV ONE (11:49)
[2024-10-29] MEDS: lactulose 20gm/30ml cup OGT SCH (14:32)
[2024-10-29] MEDS: furosemide 40mg/4ml inj IV SCH (14:32)
[2024-10-29 15:14] LABS: ALANINE AMINOTRANSFERASE 78 U/L (12-78); ALBUMIN 2.4 G/DL (3.4-5.0); ALBUMIN/GLOBULIN RATIO 0.8 (1.1-1.5); ALKALINE PHOSPHATASE 63 IU/L (46-116); ANION GAP 3 (8-16); ASPARTATE AMINO TRANSFERASE 23 U/L (10-37); BILIRUBIN,TOTAL 0.4 MG/DL (0.1-1.0); BLOOD UREA NITROGEN 47 MG/DL (7-18); CHLORIDE 107 MMOL/L (99-107); CREATININE 0.98 MG/DL (0.60-1.10); GLUCOSE 200 MG/DL (70-104); MAGNESIUM 2.2 MG/DL (1.5-2.4); PHOSPHORUS 3.6 MG/DL (2.3-4.5); POTASSIUM 4.3 MMOL/L (3.5-5.1); SODIUM 143 MMOL/L (135-145); TOTAL CARBON DIOXIDE 33.3 MMOL/L (24-32); TOTAL PROTEIN 5.5 G/DL (6.4-8.2); eCRCL 63 ML/MIN; eGFR 75 ML/MIN
[2024-10-30] VITALS (65 sets, daily range): BP systolic 85–146; BP diastolic 52–79; PULSE 70–92; RESP 19–24; O2SAT 91–100
[2024-10-30 03:13] LABS: BASOPHILS % (AUTO) 0.1 % (0-1); EOSINOPHILS # (AUTO) 0.1 X10'3 (0-0.9); EOSINOPHILS % (AUTO) 0.7 % (0-6); HEMATOCRIT 36.8 % (42.0-52.0); HEMOGLOBIN 12.2 g/dl (14.0-17.9); LYMPHOCYTES # (AUTO) 0.5 X10'3 (1.1-4.8); LYMPHOCYTES % (AUTO) 3.6 % (21-51); MEAN CORPUSCULAR HGB CONC 33.2 g/dL (33.0-36.5); MEAN CORPUSCULAR VOLUME 87.2 FL (78-98); MEAN PLATELET VOLUME 7.7 FL (7.4-10.4); MONOCYTES # (AUTO) 0.8 X10'3 (0-0.9); MONOCYTES % (AUTO) 5.4 % (2-12); NEUTROPHILS # (AUTO) 13.3 X10'3 (1.8-7.7); NEUTROPHILS % (AUTO) 90.2 % (42-75); PLATELET COUNT 435 X10'3 (140-440); RED BLOOD COUNT 4.22 X10'6 (4.70-6.10); RED CELL DISTRIBUTION WIDTH 12.9 % (11.5-14.5); WHITE BLOOD COUNT 14.7 X10'3 (4.5-11.0)
[2024-10-30 03:24] LABS: ALANINE AMINOTRANSFERASE 72 U/L (12-78); ALBUMIN 2.6 G/DL (3.4-5.0); ALBUMIN/GLOBULIN RATIO 0.8 (1.1-1.5); ALKALINE PHOSPHATASE 64 IU/L (46-116); ANION GAP 4 (8-16); ASPARTATE AMINO TRANSFERASE 25 U/L (10-37); BILIRUBIN,TOTAL 0.4 MG/DL (0.1-1.0); BLOOD UREA NITROGEN 45 MG/DL (7-18); BUN/CREATININE RATIO 51.7 (10.0-20.0); CALCIUM 8.3 MG/DL (8.5-10.1); CHLORIDE 106 MMOL/L (99-107); CREATININE 0.87 MG/DL (0.60-1.10); GLUCOSE 109 MG/DL (70-104); POTASSIUM 3.9 MMOL/L (3.5-5.1); SODIUM 144 MMOL/L (135-145); TOTAL CARBON DIOXIDE 34.1 MMOL/L (24-32); TOTAL PROTEIN 5.8 G/DL (6.4-8.2); eCRCL 71 ML/MIN; eGFR 86 ML/MIN
[2024-10-30 03:43] LABS: ABG BASE EXCESS 3.4 mmol/L (-2.0-3.0); ABG HCO3 28.9 mmol/L (21.0-28.0); ABG OXYGEN SATURATION 95.2 % (94.0-98.0); ABG PH (T) 7.421 (7.350-7.450); ALLEN'S TEST Modified; FCOHb 0.3 % (0.5-1.5); FHHb 4.8 % (0.0-5.0); FMetHb 0.3 % (0.0-1.5); FO2Hb 94.6 % (94.0-98.0); PEEP 10 cm H2O; RESPIRATORY RATE 22 b/min; TIDAL VOLUME 450 mL; TOTAL HEMOGLOBIN 13.2 G/dl (13.5-17.5)
[2024-10-30] MEDS: predniSONE 20 mg tablet OGT SCH (08:14)
[2024-10-30 09:46] LABS: ABG BASE EXCESS 0.7 mmol/L (-2.0-3.0); ABG HCO3 28.4 mmol/L (21.0-28.0); ABG OXYGEN SATURATION 94.8 % (94.0-98.0); ABG PCO2 (T) 57.7 mmHg (35.0-48.0); ABG PH (T) 7.307 (7.350-7.450); ABG PO2 (T) 78.1 mmHg (83.0-108.0); ALLEN'S TEST POSITIVE; FCOHb 0.4 % (0.5-1.5); FHHb 5.2 % (0.0-5.0); FMetHb 0.3 % (0.0-1.5); FO2Hb 94.1 % (94.0-98.0); MODE AC VC +; PATIENT TEMPERATURE 36.3; PEEP 10 cm H2O; RESPIRATORY RATE 20 b/min; TIDAL VOLUME 375 mL
[2024-10-30] MEDS: POTASSIUM CHLORIDE 20 MEQ/15 ML oral solution PO SCH (11:04)
[2024-10-30] MEDS: fentaNYL 2,500 MCG in Normal Saline 250ml IV soln bag IV SCH (11:05)
[2024-10-30] MEDS: erythromycin ethylsuccinate 200mg/5mL ORAL suspension OGT SCH (11:05)
[2024-10-30 17:46] LABS: MAGNESIUM 2.1 MG/DL (1.5-2.4); PHOSPHORUS 4.4 MG/DL (2.3-4.5); POTASSIUM 4.9 MMOL/L (3.5-5.1)
[2024-10-31] VITALS (46 sets, daily range): BP systolic 85–138; BP diastolic 52–79; PULSE 62–85; RESP 16–26; O2SAT 91–98
[2024-10-31 02:49] LABS: BASOPHILS % (AUTO) 0.1 % (0-1); EOSINOPHILS # (AUTO) 0.1 X10'3 (0-0.9); EOSINOPHILS % (AUTO) 0.7 % (0-6); HEMATOCRIT 38.2 % (42.0-52.0); HEMOGLOBIN 12.4 g/dl (14.0-17.9); LYMPHOCYTES # (AUTO) 0.6 X10'3 (1.1-4.8); LYMPHOCYTES % (AUTO) 3.5 % (21-51); MEAN CORPUSCULAR HEMOGLOBIN 28.7 PG (27.0-31.0); MEAN CORPUSCULAR HGB CONC 32.5 g/dL (33.0-36.5); MEAN CORPUSCULAR VOLUME 88.3 FL (78-98); MEAN PLATELET VOLUME 7.7 FL (7.4-10.4); MONOCYTES % (AUTO) 5.5 % (2-12); NEUTROPHILS # (AUTO) 16.6 X10'3 (1.8-7.7); NEUTROPHILS % (AUTO) 90.2 % (42-75); PLATELET COUNT 450 X10'3 (140-440); RED BLOOD COUNT 4.33 X10'6 (4.70-6.10); RED CELL DISTRIBUTION WIDTH 13.2 % (11.5-14.5); WHITE BLOOD COUNT 18.4 X10'3 (4.5-11.0)
[2024-10-31 03:01] LABS: ALANINE AMINOTRANSFERASE 85 U/L (12-78); ALBUMIN 2.7 G/DL (3.4-5.0); ALBUMIN/GLOBULIN RATIO 0.8 (1.1-1.5); ALKALINE PHOSPHATASE 66 IU/L (46-116); ANION GAP 2 (8-16); ASPARTATE AMINO TRANSFERASE 40 U/L (10-37); BILIRUBIN,TOTAL 0.3 MG/DL (0.1-1.0); BLOOD UREA NITROGEN 52 MG/DL (7-18); BUN/CREATININE RATIO 44.4 (10.0-20.0); CALCIUM 8.5 MG/DL (8.5-10.1); CHLORIDE 109 MMOL/L (99-107); CREATININE 1.17 MG/DL (0.60-1.10); GLUCOSE 159 MG/DL (70-104); POTASSIUM 4.3 MMOL/L (3.5-5.1); SODIUM 147 MMOL/L (135-145); TOTAL PROTEIN 5.9 G/DL (6.4-8.2); eCRCL 53 ML/MIN; eGFR 61 ML/MIN
[2024-10-31 03:27] LABS: ALLEN'S TEST Modified
[2024-10-31 03:28] LABS: ABG BASE EXCESS 2.8 mmol/L (-2.0-3.0); ABG OXYGEN SATURATION 89.6 % (94.0-98.0); ABG PCO2 (T) 64.7 mmHg (35.0-48.0); ABG PH (T) 7.298 (7.350-7.450); FCOHb 0.9 % (0.5-1.5); FHHb 10.3 % (0.0-5.0); FMetHb 0.3 % (0.0-1.5); FO2Hb 88.5 % (94.0-98.0); MODE vnet- ac prvc; PEEP 10 cm H2O; RESPIRATORY RATE 20 b/min; TIDAL VOLUME 375 mL; TOTAL HEMOGLOBIN 13.2 G/dl (13.5-17.5)
[2024-10-31] MEDS: NYSTATIN CREAM - 30GM TUBE TP SCH (20:55)
[2024-11-01] VITALS (45 sets, daily range): BP systolic 85–117; BP diastolic 50–66; PULSE 58–73; RESP 12–21; O2SAT 92–99
[2024-11-01 02:09] LABS: ALANINE AMINOTRANSFERASE 89 U/L (12-78); ALBUMIN 2.6 G/DL (3.4-5.0); ALBUMIN/GLOBULIN RATIO 0.9 (1.1-1.5); ALKALINE PHOSPHATASE 53 IU/L (46-116); ANION GAP 1 (8-16); ASPARTATE AMINO TRANSFERASE 42 U/L (10-37); BILIRUBIN,TOTAL 0.4 MG/DL (0.1-1.0); BLOOD UREA NITROGEN 50 MG/DL (7-18); BUN/CREATININE RATIO 54.3 (10.0-20.0); CALCIUM 8.5 MG/DL (8.5-10.1); CHLORIDE 109 MMOL/L (99-107); CREATININE 0.92 MG/DL (0.60-1.10); GLUCOSE 101 MG/DL (70-104); POTASSIUM 4.3 MMOL/L (3.5-5.1); SODIUM 150 MMOL/L (135-145); TOTAL CARBON DIOXIDE 39.8 MMOL/L (24-32); TOTAL PROTEIN 5.4 G/DL (6.4-8.2); eCRCL 67 ML/MIN; eGFR 80 ML/MIN
[2024-11-01 02:11] LABS: BASOPHILS % (AUTO) 0.1 % (0-1); EOSINOPHILS # (AUTO) 0.3 X10'3 (0-0.9); EOSINOPHILS % (AUTO) 1.9 % (0-6); HEMATOCRIT 35.4 % (42.0-52.0); HEMOGLOBIN 11.9 g/dl (14.0-17.9); LYMPHOCYTES # (AUTO) 0.9 X10'3 (1.1-4.8); LYMPHOCYTES % (AUTO) 6.6 % (21-51); MEAN CORPUSCULAR HEMOGLOBIN 29.3 PG (27.0-31.0); MEAN CORPUSCULAR HGB CONC 33.6 g/dL (33.0-36.5); MEAN CORPUSCULAR VOLUME 87.2 FL (78-98); MEAN PLATELET VOLUME 7.6 FL (7.4-10.4); MONOCYTES # (AUTO) 0.7 X10'3 (0-0.9); MONOCYTES % (AUTO) 4.6 % (2-12); NEUTROPHILS # (AUTO) 12.2 X10'3 (1.8-7.7); NEUTROPHILS % (AUTO) 86.8 % (42-75); PLATELET COUNT 387 X10'3 (140-440); RED BLOOD COUNT 4.05 X10'6 (4.70-6.10); RED CELL DISTRIBUTION WIDTH 13.1 % (11.5-14.5); WHITE BLOOD COUNT 14.1 X10'3 (4.5-11.0)
[2024-11-01 03:18] LABS: ABG BASE EXCESS 5.9 mmol/L (-2.0-3.0); ABG HCO3 30.4 mmol/L (21.0-28.0); ABG OXYGEN SATURATION 94.3 % (94.0-98.0); ABG PCO2 (T) 42.4 mmHg (35.0-48.0); ABG PH (T) 7.471 (7.350-7.450); ABG PO2 (T) 65.4 mmHg (83.0-108.0); ALLEN'S TEST POSITIVE; FCOHb 0.6 % (0.5-1.5); FHHb 5.6 % (0.0-5.0); FMetHb 0.3 % (0.0-1.5); FO2Hb 93.5 % (94.0-98.0); MODE VENT - AC; PATIENT TEMPERATURE 36.1; PEEP 10 cm H2O; RESPIRATORY RATE 20 b/min; TIDAL VOLUME 450 mL; TOTAL HEMOGLOBIN 12.2 G/dl (13.5-17.5)
[2024-11-01] MEDS ORDERED: potassium Cl 20 mEq SR tablet PO PRN ×2 (12:45)
[2024-11-01] MEDS ORDERED: sodium phosphate inj. 30 MMOL in dextrose 5%-water 250 ML IV PRN (12:45)
[2024-11-01] MEDS ORDERED: magnesium sulf-water 2g/50mL 50 ML IV PRN (12:45)
[2024-11-01] MEDS ORDERED: magnesium Cl slow-release 64mg tablet PO PRN (12:45)
[2024-11-01] MEDS ORDERED: magnesium sulf-water 4G/100mL 100 ML IV PRN (12:45)
[2024-11-01] MEDS ORDERED: Dextrose 10%-water IV solution 1,000 ML IV PRN (12:45)
[2024-11-01] MEDS ORDERED: sodium phosphate inj. 15 MMOL in dextrose 5%-water 250 ML IV PRN (12:45)
[2024-11-01] MEDS ORDERED: Neutra Phos packet PO PRN (12:45)
[2024-11-01] MEDS ORDERED: Neutra Phos packet OGT PRN (13:42)
[2024-11-01] MEDS ORDERED: POTASSIUM CHLORIDE 20 MEQ/15 ML oral solution OGT PRN (13:43)
[2024-11-01] MEDS: POTASSIUM CHLORIDE 20 MEQ/15 ML oral solution OGT SCH (14:32)
[2024-11-01] MEDS: fat emulsion 20% inj. 100 ML IV SCH (19:52)
[2024-11-01] MEDS: ZINC/COPPER/MANGANESE/SELENIUM 0.5 ML, chromic chloride inj. 5 MCG in AMINO ACIDS 5 %/D... IV SCH (19:55)
[2024-11-02] VITALS (47 sets, daily range): BP systolic 92–177; BP diastolic 56–86; PULSE 56–93; RESP 17–25; O2SAT 89–99
[2024-11-02 02:22] LABS: BASOPHILS % (AUTO) 0.3 % (0-1); EOSINOPHILS # (AUTO) 0.2 X10'3 (0-0.9); EOSINOPHILS % (AUTO) 1.4 % (0-6); HEMATOCRIT 35.8 % (42.0-52.0); HEMOGLOBIN 11.8 g/dl (14.0-17.9); LYMPHOCYTES # (AUTO) 0.8 X10'3 (1.1-4.8); LYMPHOCYTES % (AUTO) 5.1 % (21-51); MEAN CORPUSCULAR HEMOGLOBIN 28.9 PG (27.0-31.0); MEAN CORPUSCULAR VOLUME 87.4 FL (78-98); MEAN PLATELET VOLUME 7.6 FL (7.4-10.4); MONOCYTES # (AUTO) 0.6 X10'3 (0-0.9); MONOCYTES % (AUTO) 4.3 % (2-12); NEUTROPHILS # (AUTO) 13.4 X10'3 (1.8-7.7); NEUTROPHILS % (AUTO) 88.9 % (42-75); PLATELET COUNT 395 X10'3 (140-440); RED CELL DISTRIBUTION WIDTH 13.2 % (11.5-14.5)
[2024-11-02 02:36] LABS: ALANINE AMINOTRANSFERASE 103 U/L (12-78); ALBUMIN 2.6 G/DL (3.4-5.0); ALBUMIN/GLOBULIN RATIO 0.9 (1.1-1.5); ALKALINE PHOSPHATASE 53 IU/L (46-116); ANION GAP 0 (8-16); ASPARTATE AMINO TRANSFERASE 47 U/L (10-37); BILIRUBIN,TOTAL 0.5 MG/DL (0.1-1.0); BLOOD UREA NITROGEN 52 MG/DL (7-18); BUN/CREATININE RATIO 57.1 (10.0-20.0); CALCIUM 8.4 MG/DL (8.5-10.1); CHLORIDE 109 MMOL/L (99-107); CREATININE 0.91 MG/DL (0.60-1.10); GLUCOSE 149 MG/DL (70-104); MAGNESIUM 2.4 MG/DL (1.5-2.4); PHOSPHORUS 2.6 MG/DL (2.3-4.5); POTASSIUM 4.2 MMOL/L (3.5-5.1); SODIUM 150 MMOL/L (135-145); TOTAL PROTEIN 5.5 G/DL (6.4-8.2); TRIGLYCERIDES 175 MG/DL (20-135); eCRCL 68 ML/MIN; eGFR 81 ML/MIN
[2024-11-02 03:03] LABS: TOTAL CARBON DIOXIDE 41.2 MMOL/L (24-32)
[2024-11-02 03:04] LABS: PREALBUMIN 53.7 MG/DL (19-36)
[2024-11-02 03:52] LABS: ABG BASE EXCESS 10.6 mmol/L (-2.0-3.0); ABG HCO3 36.9 mmol/L (21.0-28.0); ABG OXYGEN SATURATION 95.9 % (94.0-98.0); ABG PCO2 (T) 55.3 mmHg (35.0-48.0); ABG PO2 (T) 79.7 mmHg (83.0-108.0); ALLEN'S TEST Modified; FCOHb 0.7 % (0.5-1.5); FHHb 4.1 % (0.0-5.0); FMetHb 0.3 % (0.0-1.5); FO2Hb 94.9 % (94.0-98.0); MODE AC/VC+; PATIENT TEMPERATURE 36.6; PEEP 10 cm H2O; RESPIRATORY RATE 20 b/min; TIDAL VOLUME 450 mL; TOTAL HEMOGLOBIN 12.8 G/dl (13.5-17.5)
[2024-11-02] MEDS: acetaZOLAMIDE IV 500mg inj IV SCH (09:06)
[2024-11-02] MEDS ORDERED: bisacodyl 10mg suppository rectal RC PRN (10:25)
[2024-11-02] MEDS: mupirocin 2% nasal ointment 1gm UD NS SCH (13:02)
[2024-11-02] MEDS ORDERED: POTASSIUM CHLORIDE 20 MEQ/15 ML oral solution OGT PRN (14:21)
[2024-11-02] MEDS: ZINC/COPPER/MANGANESE/SELENIUM 1 ML, chromic chloride inj. 10 MCG in AA 5%/CALCIUM/LYTE... IV SCH (21:01)
[2024-11-03] VITALS (61 sets, daily range): BP systolic 108–150; BP diastolic 53–90; PULSE 87–111; RESP 16–34; O2SAT 86–95
[2024-11-03 02:43] LABS: BASOPHILS % (AUTO) 0.1 % (0-1); EOSINOPHILS # (AUTO) 0.1 X10'3 (0-0.9); EOSINOPHILS % (AUTO) 0.3 % (0-6); HEMATOCRIT 39.3 % (42.0-52.0); HEMOGLOBIN 12.7 g/dl (14.0-17.9); LYMPHOCYTES # (AUTO) 0.4 X10'3 (1.1-4.8); LYMPHOCYTES % (AUTO) 1.4 % (21-51); MEAN CORPUSCULAR HGB CONC 32.4 g/dL (33.0-36.5); MEAN CORPUSCULAR VOLUME 89.5 FL (78-98); MEAN PLATELET VOLUME 8.2 FL (7.4-10.4); MONOCYTES % (AUTO) 3.1 % (2-12); NEUTROPHILS # (AUTO) 31.4 X10'3 (1.8-7.7); NEUTROPHILS % (AUTO) 95.1 % (42-75); PLATELET COUNT 451 X10'3 (140-440); RED BLOOD COUNT 4.39 X10'6 (4.70-6.10); RED CELL DISTRIBUTION WIDTH 13.5 % (11.5-14.5)
[2024-11-03 03:10] LABS: WHITE BLOOD COUNT 32.9 X10'3 (4.5-11.0)
[2024-11-03 03:18] LABS: ALANINE AMINOTRANSFERASE 127 U/L (12-78); ALBUMIN/GLOBULIN RATIO 0.9 (1.1-1.5); ALKALINE PHOSPHATASE 63 IU/L (46-116); ANION GAP 3 (8-16); ASPARTATE AMINO TRANSFERASE 63 U/L (10-37); BILIRUBIN,TOTAL 0.6 MG/DL (0.1-1.0); BLOOD UREA NITROGEN 63 MG/DL (7-18); BUN/CREATININE RATIO 50.8 (10.0-20.0); CALCIUM 8.7 MG/DL (8.5-10.1); CHLORIDE 112 MMOL/L (99-107); CREATININE 1.24 MG/DL (0.60-1.10); GLUCOSE 183 MG/DL (70-104); MAGNESIUM 2.4 MG/DL (1.5-2.4); PHOSPHORUS 3.4 MG/DL (2.3-4.5); POTASSIUM 5.1 MMOL/L (3.5-5.1); SODIUM 149 MMOL/L (135-145); TOTAL CARBON DIOXIDE 34.4 MMOL/L (24-32); TOTAL CELLS COUNTED 100; TOTAL PROTEIN 6.2 G/DL (6.4-8.2); TRIGLYCERIDES 141 MG/DL (20-135); eCRCL 50 ML/MIN; eGFR 57 ML/MIN
[2024-11-03 03:59] LABS: ABG BASE EXCESS 4.7 mmol/L (-2.0-3.0); ABG HCO3 31.2 mmol/L (21.0-28.0); ABG OXYGEN SATURATION 86.5 % (94.0-98.0); ABG PCO2 (T) 54.7 mmHg (35.0-48.0); ABG PH (T) 7.375 (7.350-7.450); ABG PO2 (T) 53.3 mmHg (83.0-108.0); FHHb 13.3 % (0.0-5.0); FMetHb 0.3 % (0.0-1.5); FO2Hb 85.4 % (94.0-98.0); PATIENT TEMPERATURE 37.3; PEEP 10 cm H2O; RESPIRATORY RATE 20 b/min; TIDAL VOLUME 450 mL; TOTAL HEMOGLOBIN 13.7 G/dl (13.5-17.5)
[2024-11-03] MEDS ORDERED: MVI, adult No.4 with vit. K 10 ML in dextrose 5% water 500ml 500 ML IV SCH (08:00)
[2024-11-03] MEDS: furosemide 40mg/4ml inj IV SCH (11:47)
[2024-11-03 15:35] LABS: ABG BASE EXCESS 6.3 mmol/L (-2.0-3.0); ABG HCO3 31.3 mmol/L (21.0-28.0); ABG OXYGEN SATURATION 82.3 % (94.0-98.0); ABG PCO2 (T) 48.4 mmHg (35.0-48.0); ABG PH (T) 7.433 (7.350-7.450); ABG PO2 (T) 47.2 mmHg (83.0-108.0); FHHb 17.5 % (0.0-5.0); FMetHb 0.3 % (0.0-1.5); FO2Hb 81.2 % (94.0-98.0); MODE VENT - AC; PATIENT TEMPERATURE 37.9; PEEP 10 cm H2O; RESPIRATORY RATE 20 b/min; TIDAL VOLUME 450 mL
[2024-11-04] VITALS (41 sets, daily range): BP systolic 88–127; BP diastolic 39–77; PULSE 91–108; RESP 16–25; O2SAT 89–98
[2024-11-04 02:25] LABS: BASOPHILS # (AUTO) 0.2 X10'3 (0-0.2); BASOPHILS % (AUTO) 0.4 % (0-1); EOSINOPHILS # (AUTO) 0.2 X10'3 (0-0.9); EOSINOPHILS % (AUTO) 0.5 % (0-6); HEMATOCRIT 38.5 % (42.0-52.0); HEMOGLOBIN 12.4 g/dl (14.0-17.9); LYMPHOCYTES # (AUTO) 0.4 X10'3 (1.1-4.8); LYMPHOCYTES % (AUTO) 1.2 % (21-51); MEAN CORPUSCULAR HEMOGLOBIN 29.1 PG (27.0-31.0); MEAN CORPUSCULAR HGB CONC 32.3 g/dL (33.0-36.5); MEAN CORPUSCULAR VOLUME 90.1 FL (78-98); MEAN PLATELET VOLUME 8.2 FL (7.4-10.4); MONOCYTES # (AUTO) 1.4 X10'3 (0-0.9); MONOCYTES % (AUTO) 3.9 % (2-12); NEUTROPHILS # (AUTO) 35.1 X10'3 (1.8-7.7); PLATELET COUNT 346 X10'3 (140-440); RED BLOOD COUNT 4.27 X10'6 (4.70-6.10); RED CELL DISTRIBUTION WIDTH 13.4 % (11.5-14.5)
[2024-11-04 02:40] LABS: WHITE BLOOD COUNT 37.4 X10'3 (4.5-11.0)
[2024-11-04 02:44] LABS: ALANINE AMINOTRANSFERASE 102 U/L (12-78); ALBUMIN 2.8 G/DL (3.4-5.0); ALBUMIN/GLOBULIN RATIO 0.9 (1.1-1.5); ALKALINE PHOSPHATASE 66 IU/L (46-116); ANION GAP 5 (8-16); ASPARTATE AMINO TRANSFERASE 46 U/L (10-37); BILIRUBIN,TOTAL 0.6 MG/DL (0.1-1.0); BLOOD UREA NITROGEN 87 MG/DL (7-18); BUN/CREATININE RATIO 65.9 (10.0-20.0); CALCIUM 8.9 MG/DL (8.5-10.1); CHLORIDE 111 MMOL/L (99-107); CREATININE 1.32 MG/DL (0.60-1.10); GLUCOSE 167 MG/DL (70-104); MAGNESIUM 2.6 MG/DL (1.5-2.4); SODIUM 149 MMOL/L (135-145); TOTAL CARBON DIOXIDE 33.2 MMOL/L (24-32); TOTAL PROTEIN 5.9 G/DL (6.4-8.2); eCRCL 47 ML/MIN; eGFR 53 ML/MIN
[2024-11-04 03:23] LABS: ABG BASE EXCESS -0.1 mmol/L (-2.0-3.0); ABG HCO3 25.7 mmol/L (21.0-28.0); ABG OXYGEN SATURATION 92.8 % (94.0-98.0); ABG PCO2 (T) 48.1 mmHg (35.0-48.0); ABG PO2 (T) 69.7 mmHg (83.0-108.0); ALLEN'S TEST Modified; FCOHb 0.8 % (0.5-1.5); FHHb 7.1 % (0.0-5.0); FMetHb 0.3 % (0.0-1.5); FO2Hb 91.8 % (94.0-98.0); PATIENT TEMPERATURE 37.9; PEEP 10 cm H2O; RESPIRATORY RATE 20 b/min; TIDAL VOLUME 450 mL; TOTAL HEMOGLOBIN 13.3 G/dl (13.5-17.5)
[2024-11-04 03:25] LABS: HYPERSEGMENTED NEUTROPHILS FEW; NUCLEATED RED BLOOD CELLS 1 /100WBC (0-0); TOTAL CELLS COUNTED 100
[2024-11-04] MEDS: predniSONE 20 mg tablet OGT SCH (08:09)
[2024-11-04] MEDS ORDERED: DEXTROSE 15 GM of carb/4 tabs (each vial/BOTTLE has 4 tablets) PO PRN ×2 (08:15)
[2024-11-04] MEDS ORDERED: dextrose 50%-water 50ml dispensing syringe IV PRN ×2 (08:15)
[2024-11-04] MEDS ORDERED: glucagon, human recombinant 1mg kit SUBCUT PRN (08:15)
[2024-11-04] MEDS: vancomycin 125 MG/5 ML UD oral SOLN.RECON 5mL oral syringe (FIRVANQ) PO SCH (11:15)
[2024-11-04] MEDS: FENTANYL 1000MCG/NS 100 ML BAG /PF IV SCH (12:04)
[2024-11-04] MEDS: insulin regular, human U-100 10ml vial - multi-dose SQ SCH (13:42)
[2024-11-05] VITALS (20 sets, daily range): BP systolic 78–117; BP diastolic 39–53; PULSE 95–115; RESP 25–30; O2SAT 54–98
[2024-11-05 01:23] LABS: BASOPHILS # (AUTO) 0.6 X10'3 (0-0.2); BASOPHILS % (AUTO) 1.4 % (0-1); EOSINOPHILS # (AUTO) 0.1 X10'3 (0-0.9); EOSINOPHILS % (AUTO) 0.3 % (0-6); HEMATOCRIT 36.5 % (42.0-52.0); HEMOGLOBIN 11.3 g/dl (14.0-17.9); LYMPHOCYTES # (AUTO) 0.3 X10'3 (1.1-4.8); LYMPHOCYTES % (AUTO) 0.8 % (21-51); MEAN CORPUSCULAR HEMOGLOBIN 28.9 PG (27.0-31.0); MEAN CORPUSCULAR HGB CONC 30.9 g/dL (33.0-36.5); MEAN CORPUSCULAR VOLUME 93.7 FL (78-98); MEAN PLATELET VOLUME 8.5 FL (7.4-10.4); MONOCYTES # (AUTO) 1.4 X10'3 (0-0.9); MONOCYTES % (AUTO) 3.5 % (2-12); NEUTROPHILS # (AUTO) 36.9 X10'3 (1.8-7.7); PLATELET COUNT 267 X10'3 (140-440); RED BLOOD COUNT 3.89 X10'6 (4.70-6.10); RED CELL DISTRIBUTION WIDTH 14.9 % (11.5-14.5)
[2024-11-05 01:43] LABS: ALANINE AMINOTRANSFERASE 65 U/L (12-78); ALBUMIN 2.3 G/DL (3.4-5.0); ALBUMIN/GLOBULIN RATIO 0.7 (1.1-1.5); ALKALINE PHOSPHATASE 60 IU/L (46-116); ANION GAP 5 (8-16); ASPARTATE AMINO TRANSFERASE 26 U/L (10-37); BILIRUBIN,TOTAL 0.4 MG/DL (0.1-1.0); BLOOD UREA NITROGEN 124 MG/DL (7-18); BUN/CREATININE RATIO 70.1 (10.0-20.0); CALCIUM 8.2 MG/DL (8.5-10.1); CHLORIDE 116 MMOL/L (99-107); CREATININE 1.77 MG/DL (0.60-1.10); GLUCOSE 179 MG/DL (70-104); MAGNESIUM 2.7 MG/DL (1.5-2.4); PHOSPHORUS 6.5 MG/DL (2.3-4.5); SODIUM 151 MMOL/L (135-145); TOTAL CARBON DIOXIDE 30.1 MMOL/L (24-32); TOTAL PROTEIN 5.4 G/DL (6.4-8.2); TRIGLYCERIDES 149 MG/DL (20-135); eCRCL 36 ML/MIN; eGFR 38 ML/MIN
[2024-11-05 01:45] LABS: PREALBUMIN 53.7 MG/DL (19-36)
[2024-11-05 01:52] LABS: POTASSIUM 6.5 MMOL/L (3.5-5.1); WHITE BLOOD COUNT 39.3 X10'3 (4.5-11.0)
[2024-11-05 01:56] LABS: HYPERSEGMENTED NEUTROPHILS FEW; TOTAL CELLS COUNTED 100
[2024-11-05] MEDS: dextrose 50%-water 50ml dispensing syringe IV ONE ×2 (02:58→09:26)
[2024-11-05] MEDS: insulin regular, human 10 units/0.1 ml syringe IV ONE ×2 (02:58→09:51)
[2024-11-05] MEDS: calcium chloride 100 MG/1 ML inj IV ONE (02:58)
[2024-11-05] MEDS: SODIUM ZIRCONIUM CYCLOSILICATE 10 GM POWD.PACK PO ONE (02:59)
[2024-11-05] MEDS: NORepinephrine 8mg/ 250ml NS 250 ML IV SCH (05:02)
[2024-11-05] MEDS: albuterol 2.5 MG/3 ML nebule NEB ONE ×2 (05:14→08:45)
[2024-11-05] MEDS: NORepinephrine 8mg/ 250ml NS 250 ML IV ONE (05:15)
[2024-11-05] MEDS: SODIUM ZIRCONIUM CYCLOSILICATE 10 GM POWD.PACK PO SCH (07:13)
[2024-11-05] MEDS: metroNIDAZOLE-Flagyl 500mg/NS 100 ML IV SCH (07:13)
[2024-11-05] MEDS: linezolid 600mg/300ml PREMIX 300 ML IV SCH (08:20)
[2024-11-05] MEDS: cefepime 1GM in D5W 50mL 50 ML IV SCH (08:21)
[2024-11-05 08:37] LABS: ALANINE AMINOTRANSFERASE 61 U/L (12-78); ALBUMIN 2.4 G/DL (3.4-5.0); ALBUMIN/GLOBULIN RATIO 0.8 (1.1-1.5); ALKALINE PHOSPHATASE 65 IU/L (46-116); ANION GAP 7 (8-16); ASPARTATE AMINO TRANSFERASE 28 U/L (10-37); BILIRUBIN,TOTAL 0.5 MG/DL (0.1-1.0); BLOOD UREA NITROGEN 132 MG/DL (7-18); BUN/CREATININE RATIO 63.8 (10.0-20.0); CALCIUM 9.2 MG/DL (8.5-10.1); CHLORIDE 118 MMOL/L (99-107); CREATININE 2.07 MG/DL (0.60-1.10); GLUCOSE 101 MG/DL (70-104); SODIUM 153 MMOL/L (135-145); TOTAL CARBON DIOXIDE 27.9 MMOL/L (24-32); TOTAL PROTEIN 5.4 G/DL (6.4-8.2); eCRCL 31 ML/MIN; eGFR 31 ML/MIN
[2024-11-05 08:41] LABS: POTASSIUM 6.7 MMOL/L (3.5-5.1)
[2024-11-05] MEDS ORDERED: CALCIUM GLUC 1gm/50ml NACL,iso 50 ML IV PRN (08:45)
[2024-11-05] MEDS ORDERED: LORazepam 2 mg/ml vial IV PRN ×2 (10:45→11:05)
[2024-11-05] MEDS ORDERED: morphine 10mg/0.5ml (conc. morphine) oral syringe PO PRN (10:45)
[2024-11-05] MEDS ORDERED: morphine 10mg/ml inj. IV PRN (10:45)
[2024-11-05 11:03] LABS: ABG PCO2 (T) 64.1 mmHg (35.0-48.0); ABG PH (T) 7.202 (7.350-7.450); ALLEN'S TEST MODIFIED; PATIENT TEMPERATURE 37.6
[2024-11-05 11:04] LABS: ABG BASE EXCESS -4.3 mmol/L (-2.0-3.0); ABG HCO3 24.4 mmol/L (21.0-28.0); FCOHb 0.3 % (0.5-1.5); FO2Hb 93.1 % (94.0-98.0)
[2024-11-05 11:05] LABS: ABG OXYGEN SATURATION 93.7 % (94.0-98.0); FHHb 6.3 % (0.0-5.0); FMetHb 0.3 % (0.0-1.5)
[2024-11-05] MEDS: diazepam inj 5 MG/ML inj. IV PRN (11:33)
[2024-11-05] MEDS: morphine 10mg/ml inj. IV PRN (11:33)
[2024-11-05] MEDS ORDERED: docusate sod 100mg capsule PO SCH (20:00)
== END 2024-11-05 16:42 | DRG 870 ==
LOC: ER 18:50 → UNDOADMIN 21:25 → ED HOLD 21:25 → PCU 3S 10-18 04:01 → ED HOLD 10-18 11:07 → CICU 2S 10-26 13:05
PROVIDERS: ADMIT Internal Medicine; ATTEND Family Medicine
PROC: B32T1ZZ Computerized Tomography (CT Scan) of Left Pulmonary Artery using Low Osmolar Contrast (ICD-10-PCS; 2024-10-17)
PROC: B3201ZZ Computerized Tomography (CT Scan) of Thoracic Aorta using Low Osmolar Contrast (ICD-10-PCS; 2024-10-17)
PROC: B32S1ZZ Computerized Tomography (CT Scan) of Right Pulmonary Artery using Low Osmolar Contrast (ICD-10-PCS; 2024-10-17)
PROC: B32T1ZZ Computerized Tomography (CT Scan) of Left Pulmonary Artery using Low Osmolar Contrast (ICD-10-PCS; 2024-10-17)
PROC: B3201ZZ Computerized Tomography (CT Scan) of Thoracic Aorta using Low Osmolar Contrast (ICD-10-PCS; 2024-10-17)
PROC: B32S1ZZ Computerized Tomography (CT Scan) of Right Pulmonary Artery using Low Osmolar Contrast (ICD-10-PCS; 2024-10-17)
PROC: 5A0935A Assistance with Respiratory Ventilation, Less than 24 Consecutive Hours, High Flow/Velocity Cannula (ICD-10-PCS; 2024-10-18)
PROC: 5A0935A Assistance with Respiratory Ventilation, Less than 24 Consecutive Hours, High Flow/Velocity Cannula (ICD-10-PCS; 2024-10-19)
PROC: 5A09357 Assistance with Respiratory Ventilation, Less than 24 Consecutive Hours, Continuous Positive Airway Pressure (ICD-10-PCS; 2024-10-19)
PROC: 5A0955A Assistance with Respiratory Ventilation, Greater than 96 Consecutive Hours, High Flow/Velocity Cannula (ICD-10-PCS; 2024-10-20)
PROC: BW241ZZ Computerized Tomography (CT Scan) of Chest and Abdomen using Low Osmolar Contrast (ICD-10-PCS; 2024-10-21)
PROC: 0BH17EZ Insertion of Endotracheal Airway into Trachea, Via Natural or Artificial Opening (ICD-10-PCS; principal; 2024-10-26)
PROC: 5A1955Z Respiratory Ventilation, Greater than 96 Consecutive Hours (ICD-10-PCS; 2024-10-26)
PROC: 02HV33Z Insertion of Infusion Device into Superior Vena Cava, Percutaneous Approach (ICD-10-PCS; 2024-10-26)
PROC: B548ZZA Ultrasonography of Superior Vena Cava, Guidance (ICD-10-PCS; 2024-10-26)
DX: A41.9 Sepsis, unspecified organism (principal); U07.1 COVID-19; I50.31 Acute diastolic (congestive) heart failure; R65.21 Severe sepsis with septic shock; J12.82 Pneumonia due to coronavirus disease 2019; J80 Acute respiratory distress syndrome; J15.9 Unspecified bacterial pneumonia; N17.9 Acute kidney failure, unspecified; Z66 Do not resuscitate; I16.0 Hypertensive urgency; I25.10 Atherosclerotic heart disease of native coronary artery without angina pectoris; I25.2 Old myocardial infarction; Z88.0 Allergy status to penicillin; Z51.5 Encounter for palliative care
CPT/HCPCS: 36415; 36600; 71045; 71260; 71275; 74018; 80048; 80053; 80162; 81003; 82803; 82948; 83036; 83605; 83735; 83880; 84100; 84132; 84134; 84145; 84478; 85007; 85018; 85025; 85379; 85610; 85651; 85730; 86140; 87040; 87070; 87081; 87502; 87503; 87811; 93005; 93306; 94002; 94003; 94640; 94660; 94668; 94760; 99285; A4333; A4349; A5200; A6212; A6213; A6250; A6258; A6449; A6590; A7015; A9900; C1758; G0378; J0360; J0456; J0692; J0696; J1120; J1160; J1650; J1815; J1885; J1940; J2020; J2060; J2274; J2405; J2470; J2704; J2919; J3010; J3262; J3360; J3490; J7030; J7040; J7050; J7120; J7512; Q0177; Q9967